=== PATIENT | female | born 1965 | race Caucasian/White ===

== ENCOUNTER → 2016-08-02 | Outpatient (CLI) | payer OTHER ==
[~2016-08-02] MED LIST: INVANZ1 GM IV; INVOKAMET 150-1 EACH PO; LEVEMIR100 UNIT/1 SQ; MYCOSTATIN PWD15 GM TP; NEURONTIN DPS300 MG PO; NORCO 5-325 TA1 EACH PO; OXY-CONTIN10 MG PO; PEPCID DPS20 MG PO; SULFAMYLON453.6 GM TP; TOPAMAX DPS25 MG PO; ULTRAM DPS50 MG PO; ZESTRIL DPS10 MG PO
== END | disposition home or self-care (01) ==
LOC: NUE 08:19
DX: Z01.818 Encounter for other preprocedural examination (principal); E66.01 Morbid (severe) obesity due to excess calories
CPT/HCPCS: 258